=== PATIENT | female | born 1950 | race American Indian/Alaskan Native ===

== ENCOUNTER 2017-05-08 17:01 | Emergency (ER) | payer MEDICAID ==
[2017-05-08 18:13] LABS: Basophils % (Auto) 0.7 % (0.0-1.8); Eosinophils # (Auto) 0.1 K/mm3 (0.0-0.4); Eosinophils % (Auto) 1.8 % (0.0-4.3); Hematocrit 41.9 % (30.3-42.9); Hemoglobin 13.4 gm/dl (10.1-14.3); Lymphocytes # (Auto) 2.2 K/mm3 (1.2-5.4); Lymphocytes % (Auto) 31.6 % (13.4-35.0); Mean Corpuscular HGB Conc 32 % (30-34); Mean Corpuscular Hemoglobin 29 pg (28-32); Mean Corpuscular Volume 92 fl (79-97); Monocytes # (Auto) 0.5 K/mm3 (0.0-0.8); Monocytes % (Auto) 7.8 % (0.0-7.3); Platelet Count 316 K/mm3 (140-440); Red Blood Count 4.58 M/mm3 (3.65-5.03); Red Cell Distribution Width 15.1 % (13.2-15.2)
[2017-05-08 18:39] LABS: Bacteria,Urine 1+ /HPF (Negative); Bilirubin,Urine NEG (Negative); Blood,Urine NEG (Negative); Color,Urine Yellow (Yellow); Hyaline Casts,Urine 1 /LPF; Mucus,Urine FEW /HPF; Nitrite,Urine NEG (Negative); Protein,Urine <15 mg/dL mg/dL (Negative); Urobilinogen,Urine < 2.0 mg/dL (<2.0)
[2017-05-08 18:56] LABS: Calcium 9.1 mg/dL (8.4-10.2)
[2017-05-08 18:57] LABS: Amphetamine Screen,Urine PRESUMPTIVE NEGATIVE; Benzodiazepines Screen,Urine PRESUMPTIVE NEGATIVE; Cannabinoid Screen,Urine PRESUMPTIVE NEGATIVE; Cocaine Screen,Urine PRESUMPTIVE NEGATIVE; Methadone Screen,Urine PRESUMPTIVE NEGATIVE; Opiate Screen,Urine PRESUMPTIVE NEGATIVE
--- NOTE | 2017-05-09 01:17 | Emergency Department Report ---
ED Psych HPI - General Chief Complaint: Dental/Oral Stated Complaint: DEPRESSION Time Seen by Provider: 05/08/17 19:28 Source: patient Mode of arrival: Ambulatory - History of Present Illness Initial Comments: Patient is a 66-year-old [place] female with past medical history schizophrenia who is here for disorganized thoughts. Patient states that she wants to have her teeth removed and replaced. The next sentence the patient is began speaking about how she wants her children around her. Her children or adults. Patient went down several other tangents as well. Patient is denying homicidal suicidal ideations at this time. The patient is unable to tell me where she lives. Patient is denying fevers chills nausea vomiting cough headache at this time. -: unknown - Related Data Allergies Allergy/AdvReac Type Severity Reaction Status Date / Time No Known Allergies Allergy Unverified 05/08/17 17:33 ED Review of Systems ROS: Stated complaint: DEPRESSION Other details as noted in HPI Comment: Unobtainable due to pts medical conditions ED Past Medical Hx - Past Medical History Previous Medical History?: Yes Hx Psychiatric Treatment: Yes (unknown) - Surgical History Hx Appendectomy: (ROSSI) - Social History Smoking Status: Current Every Day Smoker Substance Use Type: Alcohol ED Physical Exam - General Limitations: No Limitations General appearance: alert, in no apparent distress - Head Head exam: Present: atraumatic, normocephalic - Eye Eye exam: Present: normal appearance - ENT ENT exam: Present: mucous membranes moist - Neck Neck exam: Present: normal inspection - Respiratory Respiratory exam: Present: normal lung sounds bilaterally. Absent: respiratory distress, wheezes, rales, rhonchi - Cardiovascular Cardiovascular Exam: Present: regular rate, normal rhythm. Absent: systolic murmur, diastolic murmur, rubs, gallop - GI/Abdominal GI/Abdominal exam: Present: soft, normal bowel sounds - Extremities Exam Extremities exam: Present: normal inspection - Back Exam Back exam: Present: normal inspection - Neurological Exam Neurological exam: Present: alert, altered. Absent: oriented X3 - Psychiatric Psychiatric exam: Present: normal affect, normal mood. Absent: suicidal ideation - Skin Skin exam: Present: warm, dry, intact, normal color. Absent: rash ED Course Vital Signs 05/08/17 05/08/17 05/09/17 17:25 18:15 01:23 Temperature 98.6 F 99.3 F 98.5 F Pulse Rate 95 H 92 H 90 Respiratory 16 20 16 Rate Blood Pressure 134/76 Blood Pressure 143/86 148/88 [Left] Blood Pressure [Right] O2 Sat by Pulse 98 97 98 Oximetry 05/09/17 05/09/17 08:08 08:20 Temperature 98.6 F Pulse Rate 90 Respiratory 20 20 Rate Blood Pressure Blood Pressure [Left] Blood Pressure 161/76 [Right] O2 Sat by Pulse 98 98 Oximetry - Reevaluation(s) Reevaluation #1: 05/09/17 01:17 Patient still pending mobile psych assessment ED Medical Decision Making - Lab Data Result diagrams: 05/08/17 17:51 05/08/17 17:51 - Medical Decision Making Patient is a 66-year-old [place] female who is presenting with disorganized thoughts. Patient is not homicidal suicidal and does not meet criteria for 1013 at this time. Patient is given several numbers of people who may be able to help care for her. Patient's will await social work consult. Critical care attestation.: If time is entered above; I have spent that time in minutes in the direct care of this critically ill patient, excluding procedure time. ED Disposition Clinical Impression: Schizophrenia Disposition: [id number]/TX-65 PSY HOSP/PSY UNIT Is pt being admited?: No Does the pt Need Aspirin: No Condition: Stable Referrals: GUADALUPE CHENG MD [Primary Care Provider] - 3-5 Days
[2017-05-09 08:37] VITALS: BP 161/76
--- NOTE | 2017-05-09 10:00 | Emergency Department Report ---
Blank Doc - Documentation Documentation: Ms. Apple is a 66 years old female was asked by the nurse to assess for possible discharge. Patient has history of dementia and she lived in a fpc. retirement personnel called in asking about how they said that she left the fpc without telling them and/or been looking for. Patient does not have any evidence of acute psychosis or suicidal or homicidal ideation. They' re willing to accept her back to her current resident and they will arrange for transportation.. Patient is safe to go home.
== END 2017-05-09 11:14 | disposition home or self-care (01) ==
LOC: EEVIPCON 17:01 → ED 17:01
DX: F20.9 Schizophrenia, unspecified (principal); F17.200 Nicotine dependence, unspecified, uncomplicated; F03.90 Unspecified dementia, unspecified severity, without behavioral disturbance, psychotic disturbance, mood disturbance, and anxiety; Z90.49 Acquired absence of other specified parts of digestive tract; Z79.899 Other long term (current) drug therapy
CPT/HCPCS: 36415; 80048; 80307; 81001; 85025; 99284; G0480; 80320

== ENCOUNTER 2017-08-08 16:59 | Inpatient (IN) | payer MEDICARE ==
--- NOTE | 2017-08-08 17:47 | Emergency Department Report ---
ED Altered Mental Status HPI - General Chief Complaint: Altered Mental Status Stated Complaint: SEIZURES Time Seen by Provider: 08/08/17 17:30 Source: EMS Mode of arrival: Stretcher Limitations: Altered Mental Status - History of Present Illness Initial Comments: Patient is a 66-year-old female that presents to emergency room with complaints of seizure and unresponsiveness. Per EMS patient was found down at her fdc in a puddle of urine. Patient has a known seizure history and has not been compliant with medications recently. Patient is postictal at this time however is improving. Patient has not had any further seizure activity with EMS or here. Patient's speech is slowed and slurred. Patient is A& O 4. Patient denies chest pain shortness of breath. Patient denies headache. Patient denies dizziness. Patient denies neck pain. Patient denies abdominal pain. States she has not been taking her medications due to not having them. MD Complaint: altered mental status, confusion -: Sudden Severity: Unable to Determine Context: change in medication, history of similar presen, seizure disorder, other Associated Symptoms: denies other symptoms, seizure, incontinence. denies: chest pain, cough, diaphoresis, fever/chills, headaches, loss of appetite, malaise, nausea/vomiting, rash, shortness of breath, syncope, weakness, foul smelling urine, difficulty walking, diarrhea - Related Data Allergies Allergy/AdvReac Type Severity Reaction Status Date / Time No Known Allergies Allergy Unverified 05/08/17 17:33 ED Review of Systems ROS: Stated complaint: SEIZURES Other details as noted in HPI Comment: All other systems reviewed and negative Constitutional: denies: chills, fever Eyes: denies: eye pain, eye discharge, vision change ENT: denies: ear pain, throat pain Respiratory: denies: cough, shortness of breath, wheezing Cardiovascular: denies: chest pain, palpitations Endocrine: no symptoms reported Gastrointestinal: denies: abdominal pain, nausea, diarrhea Genitourinary: denies: urgency, dysuria, discharge Musculoskeletal: denies: back pain, joint swelling, arthralgia Skin: denies: rash, lesions Neurological: weakness. denies: headache, paresthesias Psychiatric: denies: anxiety, depression Hematological/Lymphatic: denies: easy bleeding, easy bruising ED Past Medical Hx - Past Medical History Previous Medical History?: Yes Hx Psychiatric Treatment: Yes (, schizophrenia) - Surgical History Past Surgical History?: No Hx Appendectomy: (ROSSI) - Family History Family history: hypertension - Social History Smoking Status: Unknown if ever smoked Substance Use Type: None ED Physical Exam - General Limitations: No Limitations, Altered Mental Status General appearance: alert, in no apparent distress - Head Head exam: Present: atraumatic, normocephalic - Eye Eye exam: Present: normal appearance - ENT ENT exam: Present: mucous membranes moist - Neck Neck exam: Present: normal inspection - Respiratory Respiratory exam: Present: normal lung sounds bilaterally. Absent: respiratory distress - Cardiovascular Cardiovascular Exam: Present: regular rate, normal rhythm. Absent: systolic murmur, diastolic murmur, rubs, gallop - GI/Abdominal GI/Abdominal exam: Present: soft, normal bowel sounds - Extremities Exam Extremities exam: Present: normal inspection - Back Exam Back exam: Present: normal inspection - Neurological Exam Neurological exam: Present: alert, oriented X3, CN II-XII intact - Expanded Neurological Exam Expanded Patient oriented to: Present: person, place, time Best Eye Response ([place]): (3) open to voice Best Motor Response ([place]): (6) obeys commands Best Verbal Response ([place]): (5) oriented [place] Total: 14 - Skin Skin exam: Present: warm, dry, intact, normal color. Absent: rash ED Course Vital Signs 08/08/17 08/08/17 08/08/17 17:14 17:23 17:30 Temperature 97.8 F Pulse Rate 76 75 Blood Pressure 201/101 Blood Pressure 204/97 [Left] O2 Sat by Pulse 96 Oximetry 08/08/17 18:57 Temperature Pulse Rate Blood Pressure Blood Pressure 189/104 [Left] O2 Sat by Pulse Oximetry - Reevaluation(s) Reevaluation #1: Discussed all results with patient. Discussed plan of care and admission with patient. Patient agreed to be admitted. Hospitalist consulted for admission. 08/08/17 20:11 - Lab Data Result diagrams: 08/08/17 17:52 08/08/17 17:52 Lab Results 08/08/17 08/08/17 08/08/17 Range/Units 17:52 17:52 17:52 WBC 4.6 (4.5-11.0) K/mm3 RBC 4.26 (3.65-5.03) M/mm3 Hgb 12.6 (10.1-14.3) gm/dl Hct 39.4 (30.3-42.9) % MCV 93 (79-97) fl MCH 30 (28-32) pg MCHC 32 (30-34) % RDW 15.8 H (13.2-15.2) % Plt Count 220 (140-440) K/mm3 Lymph % (Auto) 31.1 (13.4-35.0) % [place] % (Auto) 9.1 H (0.0-7.3) % Eos % (Auto) 1.6 (0.0-4.3) % Baso % (Auto) 0.8 (0.0-1.8) % Lymph # 1.4 (1.2-5.4) K/mm3 [place] # 0.4 (0.0-0.8) K/mm3 Eos # 0.1 (0.0-0.4) K/mm3 Baso # 0.0 (0.0-0.1) K/mm3 Seg Neutrophils % 57.4 (40.0-70.0) % Seg Neutrophils # 2.6 (1.8-7.7) K/mm3 Sodium 145 (137-145) mmol/L Potassium 3.9 (3.6-5.0) mmol/L Chloride 104.7 (98-107) mmol/L Carbon Dioxide 29 (22-30) mmol/L Anion Gap 15 mmol/L BUN 15 (7-17) mg/dL Creatinine 1.0 (0.7-1.2) mg/dL Estimated GFR > 60 ml/min BUN/Creatinine Ratio 15 % Glucose 95 (65-100) mg/dL Lactic Acid 1.30 (0.7-2.0) mmol/L Calcium 8.2 L (8.4-10.2) mg/dL Total Bilirubin < 0.20 (0.1-1.2) mg/dL AST 45 H (5-40) units/L ALT 19 (7-56) units/L Alkaline Phosphatase 81 (35-129) units/L Total Creatine Kinase 995 H (30-135) units/L Troponin T 0.159 H* (0.00-0.029) ng/mL Total Protein 6.9 (6.3-8.2) g/dL Albumin 3.0 L (3.9-5) g/dL Albumin/Globulin Ratio 0.8 % Triglycerides 90 (2-149) mg/dL Cholesterol 120 (50-199) mg/dL LDL Cholesterol Direct 80 (50-130) mg/dL HDL Cholesterol 34 L (40-59) mg/dL Cholesterol/HDL Ratio 3.52 % Urine Color (Yellow) Urine Turbidity (Clear) Urine pH (5.0-7.0) Ur Specific [place] (1.003-1.030) Urine Protein (Negative) mg/dL Urine Glucose (UA) (Negative) mg/dL Urine Ketones (Negative) mg/dL Urine Blood (Negative) Urine Nitrite (Negative) Urine Bilirubin (Negative) Urine Urobilinogen (<2.0) mg/dL Ur Leukocyte Esterase (Negative) Urine WBC (Auto) (0.0-6.0) /HPF Urine RBC (Auto) (0.0-6.0) /HPF U Epithel Cells (Auto) (0-13.0) /HPF Urine Bacteria (Auto) (Negative) /HPF Salicylates (2.8-20.0) mg/dL Urine Opiates Screen Urine Methadone Screen Acetaminophen (10.0-30.0) ug/mL Ur Barbiturates Screen Ur Phencyclidine Scrn Ur Amphetamines Screen U Benzodiazepines Scrn Urine Cocaine Screen U Marijuana (THC) Screen Drugs of Abuse Note 08/08/17 08/08/17 08/08/17 Range/Units 17:52 17:52 18:45 WBC (4.5-11.0) K/mm3 RBC (3.65-5.03) M/mm3 Hgb (10.1-14.3) gm/dl Hct (30.3-42.9) % MCV (79-97) fl MCH (28-32) pg MCHC (30-34) % RDW (13.2-15.2) % Plt Count (140-440) K/mm3 Lymph % (Auto) (13.4-35.0) % [place] % (Auto) (0.0-7.3) % Eos % (Auto) (0.0-4.3) % Baso % (Auto) (0.0-1.8) % Lymph # (1.2-5.4) K/mm3 [place] # (0.0-0.8) K/mm3 Eos # (0.0-0.4) K/mm3 Baso # (0.0-0.1) K/mm3 Seg Neutrophils % (40.0-70.0) % Seg Neutrophils # (1.8-7.7) K/mm3 Sodium (137-145) mmol/L Potassium (3.6-5.0) mmol/L Chloride (98-107) mmol/L Carbon Dioxide (22-30) mmol/L Anion Gap mmol/L BUN (7-17) mg/dL Creatinine (0.7-1.2) mg/dL Estimated GFR ml/min BUN/Creatinine Ratio % Glucose (65-100) mg/dL Lactic Acid (0.7-2.0) mmol/L Calcium (8.4-10.2) mg/dL Total Bilirubin (0.1-1.2) mg/dL AST (5-40) units/L ALT (7-56) units/L Alkaline Phosphatase (35-129) units/L Total Creatine Kinase (30-135) units/L Troponin T (0.00-0.029) ng/mL Total Protein (6.3-8.2) g/dL Albumin (3.9-5) g/dL Albumin/Globulin Ratio % Triglycerides (2-149) mg/dL Cholesterol (50-199) mg/dL LDL Cholesterol Direct (50-130) mg/dL HDL Cholesterol (40-59) mg/dL Cholesterol/HDL Ratio % Urine Color Yellow (Yellow) Urine Turbidity Clear (Clear) Urine pH 6.0 (5.0-7.0) Ur Specific [place] 1.010 (1.003-1.030) Urine Protein <15 mg/dl (Negative) mg/dL Urine Glucose (UA) Neg (Negative) mg/dL Urine Ketones Neg (Negative) mg/dL Urine Blood Sm (Negative) Urine Nitrite Neg (Negative) Urine Bilirubin Neg (Negative) Urine Urobilinogen < 2.0 (<2.0) mg/dL Ur Leukocyte Esterase Tr (Negative) Urine WBC (Auto) 2.0 (0.0-6.0) /HPF Urine RBC (Auto) 2.0 (0.0-6.0) /HPF U Epithel Cells (Auto) 2.0 (0-13.0) /HPF Urine Bacteria (Auto) 1+ (Negative) /HPF Salicylates < 0.3 L (2.8-20.0) mg/dL Urine Opiates Screen Urine Methadone Screen Acetaminophen < 5.0 L (10.0-30.0) ug/mL Ur Barbiturates Screen Ur Phencyclidine Scrn Ur Amphetamines Screen U Benzodiazepines Scrn Urine Cocaine Screen U Marijuana (THC) Screen Drugs of Abuse Note 08/08/17 Range/Units 18:45 WBC (4.5-11.0) K/mm3 RBC (3.65-5.03) M/mm3 Hgb (10.1-14.3) gm/dl Hct (30.3-42.9) % MCV (79-97) fl MCH (28-32) pg MCHC (30-34) % RDW (13.2-15.2) % Plt Count (140-440) K/mm3 Lymph % (Auto) (13.4-35.0) % [place] % (Auto) (0.0-7.3) % Eos % (Auto) (0.0-4.3) % Baso % (Auto) (0.0-1.8) % Lymph # (1.2-5.4) K/mm3 [place] # (0.0-0.8) K/mm3 Eos # (0.0-0.4) K/mm3 Baso # (0.0-0.1) K/mm3 Seg Neutrophils % (40.0-70.0) % Seg Neutrophils # (1.8-7.7) K/mm3 Sodium (137-145) mmol/L Potassium (3.6-5.0) mmol/L Chloride (98-107) mmol/L Carbon Dioxide (22-30) mmol/L Anion Gap mmol/L BUN (7-17) mg/dL Creatinine (0.7-1.2) mg/dL Estimated GFR ml/min BUN/Creatinine Ratio % Glucose (65-100) mg/dL Lactic Acid (0.7-2.0) mmol/L Calcium (8.4-10.2) mg/dL Total Bilirubin (0.1-1.2) mg/dL AST (5-40) units/L ALT (7-56) units/L Alkaline Phosphatase (35-129) units/L Total Creatine Kinase (30-135) units/L Troponin T (0.00-0.029) ng/mL Total Protein (6.3-8.2) g/dL Albumin (3.9-5) g/dL Albumin/Globulin Ratio % Triglycerides (2-149) mg/dL Cholesterol (50-199) mg/dL LDL Cholesterol Direct (50-130) mg/dL HDL Cholesterol (40-59) mg/dL Cholesterol/HDL Ratio % Urine Color (Yellow) Urine Turbidity (Clear) Urine pH (5.0-7.0) Ur Specific [place] (1.003-1.030) Urine Protein (Negative) mg/dL Urine Glucose (UA) (Negative) mg/dL Urine Ketones (Negative) mg/dL Urine Blood (Negative) Urine Nitrite (Negative) Urine Bilirubin (Negative) Urine Urobilinogen (<2.0) mg/dL Ur Leukocyte Esterase (Negative) Urine WBC (Auto) (0.0-6.0) /HPF Urine RBC (Auto) (0.0-6.0) /HPF U Epithel Cells (Auto) (0-13.0) /HPF Urine Bacteria (Auto) (Negative) /HPF Salicylates (2.8-20.0) mg/dL Urine Opiates Screen Presumptive negative Urine Methadone Screen Presumptive negative Acetaminophen (10.0-30.0) ug/mL Ur Barbiturates Screen Presumptive negative Ur Phencyclidine Scrn Presumptive negative Ur Amphetamines Screen Presumptive negative U Benzodiazepines Scrn Presumptive negative Urine Cocaine Screen Presumptive negative U Marijuana (THC) Screen Presumptive negative Drugs of Abuse Note Disclamer - EKG Data -: EKG Interpreted by Nv EKG shows normal: sinus rhythm, axis, intervals, QRS complexes, ST-T waves Rate: normal Interpretation: LV[facility] - Radiology Data Radiology results: report reviewed Normal limits CT scan of head - Medical Decision Making She is a 66-year-old female who presents to emergency room with seizure like activity found unresponsive at her [facility] and was brought to the ER via EMS. Patient will be admitted for further evaluation and treatment. During initial workup patient found to have an elevated troponin. will admit for further observation. - Differential Diagnosis seizure. Noncompliance. Unresponsiveness. Hypertension Critical Care Time: Yes Critical care attestation.: If time is entered above; I have spent that time in minutes in the direct care of this critically ill patient, excluding procedure time. Critical Care Time: 35 minutes spent with patient for critical care time ED Disposition Clinical Impression: Seizure, Elevated troponin, Altered mental status, Medical non-compliance, Elevated CK, Rhabdomyolysis Disposition: OP ADMIT IP TO THIS HOSP Is pt being admited?: Yes Does the pt Need Aspirin: No Condition: Critical Time of Disposition: 20:17
[2017-08-08] MEDS ORDERED: APRESOLINE IV ONE (17:49)
[2017-08-08 18:07] LABS: Basophils % (Auto) 0.8 % (0.0-1.8); Eosinophils # (Auto) 0.1 K/mm3 (0.0-0.4); Eosinophils % (Auto) 1.6 % (0.0-4.3); Hematocrit 39.4 % (30.3-42.9); Hemoglobin 12.6 gm/dl (10.1-14.3); Lymphocytes # (Auto) 1.4 K/mm3 (1.2-5.4); Lymphocytes % (Auto) 31.1 % (13.4-35.0); Mean Corpuscular HGB Conc 32 % (30-34); Mean Corpuscular Hemoglobin 30 pg (28-32); Mean Corpuscular Volume 93 fl (79-97); Monocytes # (Auto) 0.4 K/mm3 (0.0-0.8); Monocytes % (Auto) 9.1 % (0.0-7.3); Platelet Count 220 K/mm3 (140-440); Red Blood Count 4.26 M/mm3 (3.65-5.03); Red Cell Distribution Width 15.8 % (13.2-15.2)
[2017-08-08 18:25] LABS: Alanine Aminotransferase 19 units/L (7-56); BUN/Creatinine Ratio 15; Blood Urea Nitrogen 15 mg/dL (7-17); Calcium 8.2 mg/dL (8.4-10.2); Hemolysis Index 3
--- NOTE | 2017-08-08 18:48 | Cat Scan Report ---
FINAL REPORT PROCEDURE: CT HEAD/BRAIN WO CON TECHNIQUE: Computerized tomography of the head was performed without contrast material. HISTORY: Altered Mental Status COMPARISON: No prior studies are available for comparison. FINDINGS: Brain: There is no evidence of intracranial hemorrhage. No parenchymal hemorrhage is seen. No mass lesions or mass effect is identified. No abnormal extra-axial fluid collections or masses are seen. There is some decreased density seen in the periventricular white matter without mass effect. This is fairly symmetric and does not exhibit any mass effect consistent with gliosis probably on the basis of microvascular disease or white matter changes of aging. Ventricles: The ventricles, sulcal pattern and fissures are prominent consistent with atrophy. Bones: No evidence of acute fracture. Paranasal sinuses: Visualized portions are clear. Mastoid air cells: Mastoid air cells bilaterally are partially opacified and there appear to be air-fluid levels bilaterally suggesting acute mastoiditis.. IMPRESSION: There is evidence of mild atrophy and gliosis. No acute intracranial abnormalities are seen. Opacification seen in several of the mastoid air cells bilaterally with air-fluid level suggesting acute mastoiditis.
[2017-08-08 18:53] LABS: Chol/HDL Ratio 3.52 %; HDL Cholesterol 34 mg/dL (40-59); LDL Cholesterol,Direct 80 mg/dL (50-130)
[2017-08-08 18:58] LABS: Bacteria,Urine 1+ /HPF (Negative); Bilirubin,Urine NEG (Negative); Blood,Urine SM (Negative); Color,Urine Yellow (Yellow); Protein,Urine <15 mg/dL mg/dL (Negative); Urobilinogen,Urine < 2.0 mg/dL (<2.0)
[2017-08-08 19:08] LABS: Amphetamine Screen,Urine PRESUMPTIVE NEGATIVE; Benzodiazepines Screen,Urine PRESUMPTIVE NEGATIVE; Cannabinoid Screen,Urine PRESUMPTIVE NEGATIVE; Cocaine Screen,Urine PRESUMPTIVE NEGATIVE; Methadone Screen,Urine PRESUMPTIVE NEGATIVE; Opiate Screen,Urine PRESUMPTIVE NEGATIVE
[2017-08-08] MEDS ORDERED: NACL 0.9% 1000 ML 1,000 ML IV ONE (20:17)
[2017-08-08] MEDS ORDERED: ZOFRAN IV PRN (22:18)
[2017-08-08] MEDS ORDERED: SODIUM CHLORIDE FLUSH SYRINGE 10 ML IV PRN (22:18)
[2017-08-08] MEDS ORDERED: TYLENOL PO PRN (22:18)
--- NOTE | 2017-08-08 22:23 | History and Physical Report ---
History of Present Illness Date of examination: 08/08/17 History of present illness: 66-year-old woman with a history of schizophrenia who is a poor historian, was brought for evaluation of seizure. She stated that this is the first time she had seizure. She was noted to have urinary incontinence. Review of systems Constitutional: no weight loss, chills Ears, eyes, nose, mouth and throat: no nasal congestion, no nasal discharge, no sinus pressure, no vision change, no red eye. Neck: No neck pain or rigidity. Cardiovascular: no chest pain, palpitations Respiratory: No cough, shortness of breath Gastrointestinal: no abdominal pain, hematochezia Genitourinary : no dysuria, frequency , no hematuria Musculoskeletal: no joint swelling or muscle ache Integumentary: no rash, no pruritis Neurological: no parathesias, no numbness, no focal weakness Endocrine: no cold or heat intolerance, no polyuria or polydipsia Hematologic/Lymphatic: no easy bruising, no easy bleeding, no gland swelling Allergic/Immunologic: no urticaria, no angioedema. PAST MEDICAL HISTORY: Schizophrenia PAST SURGICAL HISTORY: Unknown SOCIAL HISTORY: States that she smokes, no alcohol, no drugs FAMILY HISTORY: Unknown Medications and Allergies Allergies Allergy/AdvReac Type Severity Reaction Status Date / Time No Known Allergies Allergy Unverified 05/08/17 17:33 Exam - Physical Exam Narrative exam: Gen. appearance: Patient lying in bed, no apparent distress HEENT: Normocephalic, atraumatic, pupils equally round and reactive to light, extraocular movement intact, and no sclericterus,. No JVD or thyromegaly or nodule,neck supple, no carotid bruit ,mucous membranes moist, no exudate or erythema Heart: S1, S2, regular rate and rhythm Lungs: Clear to auscultation bilaterally, breathing comfortable Abdomen: Positive bowel sounds, nontender, nondistended, no organomegaly Extremity: No edema, cyanosis, clubbing Skin: No rash, nodules, warm, dry Neuro: Oriented 3, cranial nerves II-12 intact, speech is fluent, motor and sensory intact - Constitutional Vitals: Temp Pulse Resp BP Pulse Ox 97.8 F 85 17 159/94 99 08/08/17 17:14 08/08/17 21:30 08/08/17 21:30 08/08/17 21:30 08/08/17 21:30 Results - Labs CBC & Chem 7: 18 17:52 08/08/17 17:52 Labs: Abnormal lab results 18 18 08/08/17 Range/Units 17:52 17:52 17:52 RDW 15.8 H (13.2-15.2) % [place] % (Auto) 9.1 H (0.0-7.3) % Calcium 8.2 L (8.4-10.2) mg/dL AST 45 H (5-40) units/L Total Creatine Kinase 995 H (30-135) units/L Troponin T 0.159 H* (0.00-0.029) ng/mL Albumin 3.0 L (3.9-5) g/dL HDL Cholesterol 34 L (40-59) mg/dL Salicylates < 0.3 L (2.8-20.0) mg/dL Acetaminophen (10.0-30.0) ug/mL 08/08/17 Range/Units 17:52 RDW (13.2-15.2) % [place] % (Auto) (0.0-7.3) % Calcium (8.4-10.2) mg/dL AST (5-40) units/L Total Creatine Kinase (30-135) units/L Troponin T (0.00-0.029) ng/mL Albumin (3.9-5) g/dL HDL Cholesterol (40-59) mg/dL Salicylates (2.8-20.0) mg/dL Acetaminophen < 5.0 L (10.0-30.0) ug/mL - Imaging and Cardiology EKG: image reviewed CT Scan - head: report reviewed Assessment and Plan Assessment New-onset seizure Rhabdomyolysis Abnormal troponin, patient asymptomatic Schizophrenia Plan Admit to medicine Start IV Ativan as needed for seizure activity, consult neurology Start IV fluid, monitor CK levels, check cardiac enzymes DVT prophylaxis
[2017-08-08] MEDS ORDERED: ATIVAN IV PRN (22:57)
[2017-08-08] MEDS ORDERED: NACL 0.45% 1000 ML 1,000 ML IV SCH (23:00)
[2017-08-09 00:25] LABS: Creatine Kinase MB 15.6 ng/mL (0.0-4.0)
[2017-08-09] MEDS: APRESOLINE IV PRN (01:08)
[2017-08-09 05:20] LABS: Basophils % (Auto) 0.6 % (0.0-1.8); Eosinophils # (Auto) 0.1 K/mm3 (0.0-0.4); Hematocrit 40.6 % (30.3-42.9); Hemoglobin 13.1 gm/dl (10.1-14.3); Lymphocytes # (Auto) 1.6 K/mm3 (1.2-5.4); Lymphocytes % (Auto) 33.6 % (13.4-35.0); Mean Corpuscular HGB Conc 32 % (30-34); Mean Corpuscular Hemoglobin 30 pg (28-32); Mean Corpuscular Volume 93 fl (79-97); Monocytes # (Auto) 0.5 K/mm3 (0.0-0.8); Monocytes % (Auto) 10.2 % (0.0-7.3); Platelet Count 213 K/mm3 (140-440); Red Blood Count 4.39 M/mm3 (3.65-5.03); Red Cell Distribution Width 16.2 % (13.2-15.2)
[2017-08-09 05:31] LABS: Calcium 8.3 mg/dL (8.4-10.2)
[2017-08-09 05:34] LABS: Creatine Kinase MB 15.8 ng/mL (0.0-4.0)
--- NOTE | 2017-08-09 08:50 | History and Physical Report ---
History of Present Illness Date of examination: 08/09/17 Date of admission: 08/08/17 22:18 Chief complaint: FOCUSED NEUROLOGY CONSULTATION NOTE CC: I am asked to see this 66 AA F for AMS, [facility] HPI: The patient apparently has a Dx of Schizophrenia and lives in a custodial in which the patient has been living for the past year as she states. She was apparently "found down in a pool of uring" and then brought to the ED here, confused, with a CPK of 995. A post ictal state was suspected, a head CT ( images reviewed) shows only volume loss, SVID, and an old small lacune in the left periventricular region and naught else. The tox screen is negative for illicity drugs and has no explanation for her mental status on admission. There is no explanation for her mental status in her chems. This morning she denies that she has a seizure disorder and denies taking seizure meds. She cannot state the meds she takes. She says she fell at the Jail and remembers falling. ROS: She denied any headache, dizziness, double vision, focal visual sx, any other focal neuro sx or sgns, and an 11 point ROS is negative. NEURO EXAM: MS: she is awakened from sleep, is oriented to hospital, year, and president "Tyler ..." but cannot recall his last name. Her speech is sparse and somewhat slurred (she has but one badly discolored tooth in the left lower jaw) but fluent and without errors. She follows commands well. CN II - 12 nl. Pupils both 4 mm diam and react to bright light, no nystagmus, EOM full. No facial deficit MOT: nl strength all four extrem prox and distal, 5/5 SENS: denies loss to touch throughout CEREB: fnf nl bilat DRTs: 1+ and symm prox and dist arms and legs save for absent AJs bilat, great toes downgoing to plantar stim bialt GAIT: not tested due to fall risk DX IMP: 1. Episode of altered awareness of as yet undetermined mechanism. An isolated seizure is possible. Blunt head trauma with post concussive state due to a fall (by hx) is possible. There is no clue to mechanism from blood studies or head CT. 2. Schizophrenia, chronic, with no info re her current meds 3. Rhabdomyolysis CPK 995 secondary to being "found down" on floor in custodial. RECC: 1. I will order EEG 2. Please get information from Jail re her meds and baseline mental status. 3. Go from there. Balbir Dsouza MD Medications and Allergies Allergies Allergy/AdvReac Type Severity Reaction Status Date / Time No Known Allergies Allergy Unverified 05/08/17 17:33 Home Medications Medication Instructions Recorded Confirmed Last Taken Type Cogentin 08/09/17 08/08/17 History Haldol 08/09/17 08/08/17 History Active Meds: Active Medications Acetaminophen (Tylenol) 650 mg PO Q4H PRN PRN Reason: Pain MILD(1-3)/Fever >100.5/VIZCAINO Enoxaparin Sodium (Lovenox) 40 mg SUB-Q QDAY KAT Hydralazine HCl (Apresoline) 5 mg IV Q6H PRN PRN Reason: Hypertension Last Admin: 08/09/17 01:08 Dose: 5 mg Sodium Chloride (Nacl 0.45% 1000 Ml) 1,000 mls @ 100 mls/hr IV DIRECT KAT Lorazepam (Ativan) 1 mg IV Q4H PRN PRN Reason: Seizures Ondansetron HCl (Zofran) 4 mg IV Q8H PRN PRN Reason: Nausea And Vomiting Sodium Chloride (Sodium Chloride Flush Syringe 10 Ml) 10 ml IV BID KAT Sodium Chloride (Sodium Chloride Flush Syringe 10 Ml) 10 ml IV PRN PRN PRN Reason: LINE FLUSH Physical Examination - Vital Signs Vital Signs: Vital Signs Temp Pulse BP Pulse Ox 97.8 F 76 201/101 96 08/08/17 17:14 08/08/17 17:14 08/08/17 17:14 08/08/17 17:14 Results - Laboratory Findings CBC and BMP: 08/09/17 04:46 08/09/17 04:46 Abnormal Lab Findings: Abnormal Labs 08/08/17 08/08/17 08/08/17 17:52 17:52 17:52 RDW 15.8 H [place] % (Auto) 9.1 H Glucose Calcium 8.2 L AST 45 H Total Creatine Kinase 995 H CK-MB (CK-2) Troponin T 0.159 H* Albumin 3.0 L HDL Cholesterol 34 L Salicylates < 0.3 L Acetaminophen 08/08/17 08/08/17 08/09/17 17:52 23:41 04:46 RDW 16.2 H Nolan % (Auto) 10.2 H Glucose Calcium AST Total Creatine Kinase 929 H CK-MB (CK-2) 15.6 H Troponin T 0.152 H* Albumin HDL Cholesterol Salicylates Acetaminophen < 5.0 L 08/09/17 08/09/17 04:46 04:46 RDW [place] % (Auto) Glucose 57 L Calcium 8.3 L AST Total Creatine Kinase 916 H CK-MB (CK-2) 15.8 H Troponin T 0.148 H* Albumin HDL Cholesterol Salicylates Acetaminophen
--- NOTE | 2017-08-09 09:07 | Progress Note ---
Assessment and Plan Assessment and plan: 66-year-old woman with a history of schizophrenia who presented to ED for evaluation of seizure. 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 [facility] Physical - Constitutional Vitals: Temp Pulse Resp BP Pulse Ox 98.5 F 78 20 139/74 97 08/09/17 04:34 08/08/17 23:30 08/09/17 04:34 08/09/17 04:34 08/08/17 23:30 General appearance: Present: no acute distress, well-nourished - EENT Eyes: Present: PERRL, EOM intact ENT: hearing intact, clear oral mucosa, poor dentition - Neck Neck: Present: supple, normal ROM - Respiratory Respiratory effort: normal Respiratory: bilateral: CTA - Cardiovascular Rhythm: regular Heart Sounds: Present: S1 & S2 - Extremities Extremities: no ischemia, No edema - Abdominal General gastrointestinal: soft, non-tender, non-distended - Integumentary Integumentary: Present: clear, warm, dry - Psychiatric Psychiatric: appropriate mood/affect, no intact judgment & insight, cooperative - Neurologic Neurologic: CNII-XII intact, moves all extremities Results - Labs CBC & Chem 7: 08/09/17 04:46 08/09/17 04:46 Labs: Laboratory Last Values WBC 4.6 K/mm3 (4.5-11.0) 08/09/17 04:46 RBC 4.39 M/mm3 (3.65-5.03) 08/09/17 04:46 Hgb 13.1 gm/dl (10.1-14.3) 08/09/17 04:46 Hct 40.6 % (30.3-42.9) 08/09/17 04:46 MCV 93 fl (79-97) 08/09/17 04:46 MCH 30 pg (28-32) 08/09/17 04:46 MCHC 32 % (30-34) 08/09/17 04:46 RDW 16.2 % (13.2-15.2) H 08/09/17 04:46 Plt Count 213 K/mm3 (140-440) 08/09/17 04:46 Lymph % (Auto) 33.6 % (13.4-35.0) 08/09/17 04:46 [place] % (Auto) 10.2 % (0.0-7.3) H 08/09/17 04:46 Eos % (Auto) 2.0 % (0.0-4.3) 08/09/17 04:46 Baso % (Auto) 0.6 % (0.0-1.8) 08/09/17 04:46 Lymph # 1.6 K/mm3 (1.2-5.4) 08/09/17 04:46 [place] # 0.5 K/mm3 (0.0-0.8) 08/09/17 04:46 Eos # 0.1 K/mm3 (0.0-0.4) 08/09/17 04:46 Baso # 0.0 K/mm3 (0.0-0.1) 08/09/17 04:46 Seg Neutrophils % 53.6 % (40.0-70.0) 08/09/17 04:46 Seg Neutrophils # 2.5 K/mm3 (1.8-7.7) 08/09/17 04:46 Sodium 141 mmol/L (137-145) 08/09/17 04:46 Potassium 4.2 mmol/L (3.6-5.0) 08/09/17 04:46 Chloride 103.5 mmol/L (98-107) 08/09/17 04:46 Carbon Dioxide 26 mmol/L (22-30) 08/09/17 04:46 Anion Gap 16 mmol/L 08/09/17 04:46 BUN 14 mg/dL (7-17) 08/09/17 04:46 Creatinine 1.1 mg/dL (0.7-1.2) 08/09/17 04:46 Estimated GFR 60 ml/min 08/09/17 04:46 BUN/Creatinine Ratio 13 % 08/09/17 04:46 Glucose 57 mg/dL (65-100) L 08/09/17 04:46 Lactic Acid 1.30 mmol/L (0.7-2.0) 08/08/17 17:52 Calcium 8.3 mg/dL (8.4-10.2) L 08/09/17 04:46 Total Bilirubin < 0.20 mg/dL (0.1-1.2) 08/08/17 17:52 AST 45 units/L (5-40) H 08/08/17 17:52 ALT 19 units/L (7-56) 08/08/17 17:52 Alkaline Phosphatase 81 units/L (35-129) 08/08/17 17:52 Total Creatine Kinase 916 units/L (30-135) H 08/09/17 04:46 CK-MB (CK-2) 15.8 ng/mL (0.0-4.0) H 08/09/17 04:46 CK-MB (CK-2) Rel Index 1.7 (0-4) 08/09/17 04:46 Troponin T 0.148 ng/mL (0.00-0.029) H* 08/09/17 04:46 Total Protein 6.9 g/dL (6.3-8.2) 08/08/17 17:52 Albumin 3.0 g/dL (3.9-5) L 08/08/17 17:52 Albumin/Globulin Ratio 0.8 % 08/08/17 17:52 Triglycerides 90 mg/dL (2-149) 08/08/17 17:52 Cholesterol 120 mg/dL (50-199) 08/08/17 17:52 LDL Cholesterol Direct 80 mg/dL (50-130) 08/08/17 17:52 HDL Cholesterol 34 mg/dL (40-59) L 08/08/17 17:52 Cholesterol/HDL Ratio 3.52 % 08/08/17 17:52 Urine Color Yellow (Yellow) 08/08/17 18:45 Urine Turbidity Clear (Clear) 08/08/17 18:45 Urine pH 6.0 (5.0-7.0) 08/08/17 18:45 Ur Specific [place] 1.010 (1.003-1.030) 08/08/17 18:45 Urine Protein <15 mg/dl mg/dL (Negative) 08/08/17 18:45 Urine Glucose (UA) Neg mg/dL (Negative) 08/08/17 18:45 Urine Ketones Neg mg/dL (Negative) 08/08/17 18:45 Urine Blood Sm (Negative) 08/08/17 18:45 Urine Nitrite Neg (Negative) 08/08/17 18:45 Urine Bilirubin Neg (Negative) 08/08/17 18:45 Urine Urobilinogen < 2.0 mg/dL (<2.0) 08/08/17 18:45 Ur Leukocyte Esterase Tr (Negative) 08/08/17 18:45 Urine WBC (Auto) 2.0 /HPF (0.0-6.0) 08/08/17 18:45 Urine RBC (Auto) 2.0 /HPF (0.0-6.0) 08/08/17 18:45 U Epithel Cells (Auto) 2.0 /HPF (0-13.0) 08/08/17 18:45 Urine Bacteria (Auto) 1+ /HPF (Negative) 08/08/17 18:45 Salicylates < 0.3 mg/dL (2.8-20.0) L 08/08/17 17:52 Urine Opiates Screen Presumptive negative 08/08/17 18:45 Urine Methadone Screen Presumptive negative 08/08/17 18:45 Acetaminophen < 5.0 ug/mL (10.0-30.0) L 08/08/17 17:52 Ur Barbiturates Screen Presumptive negative 08/08/17 18:45 Ur Phencyclidine Scrn Presumptive negative 08/08/17 18:45 Ur Amphetamines Screen Presumptive negative 08/08/17 18:45 U Benzodiazepines Scrn Presumptive negative 08/08/17 18:45 Urine Cocaine Screen Presumptive negative 08/08/17 18:45 U Marijuana (THC) Screen Presumptive negative 08/08/17 18:45 Drugs of Abuse Note Disclamer 08/08/17 18:45
[2017-08-09] MEDS: SODIUM CHLORIDE FLUSH SYRINGE 10 ML IV SCH ×2 (09:34→22:33)
[2017-08-09] MEDS: LOVENOX SUB-Q SCH (09:34)
--- NOTE | 2017-08-10 08:20 | Progress Note ---
Subjective Date of service: 08/10/17 Principal diagnosis: Episode of altered awareness Interval history: NEUROLOGY PROGRESS NOTE: EEG: Done 08/09 shows 9 - 10 Hz background activity. During drowsiness, voltages attenuate and frequencies slow. Stage II sleep is not attained. IMP: Normal awake and drowsy EEG. There is specifically no focal, lateralizing , or epileptiform activity. IMP: 1. Fall of undermined case in prison. She may have had a syncopal episode , tripped with subseqent loss of consciousness due to blunt head trauma with loss of urinary continence, had a self medicated overdose of her psych meds, or had an isolated seizure. Her EEG is normal. Neuro exam non focal. RECC: 1. Get more complete hx re her behavior at prison, how her meds are administered, what her meds and dosages are. 2. Get PT to see patient re gait and stability. 3. Go from there. Neuro eval is complete. Call as needed. Balbir Dsouza MD Objective - Vital Sign Vital Signs - 12hr 08/09/17 08/09/17 08/10/17 22:00 23:23 02:53 Temperature 98.6 F Pulse Rate 86 82 Respiratory 20 20 Rate Blood Pressure 157/75 O2 Sat by Pulse 99 96 Oximetry 08/10/17 07:43 Temperature 98.2 F Pulse Rate 68 Respiratory 20 Rate Blood Pressure 158/81 O2 Sat by Pulse 99 Oximetry - Laboratory Findings CBC and BMP: 08/09/17 04:46 08/09/17 04:46 Abnormal Lab Findings: Abnormal Labs 08/08/17 08/08/17 08/08/17 17:52 17:52 17:52 RDW 15.8 H [place] % (Auto) 9.1 H Glucose Calcium 8.2 L AST 45 H Total Creatine Kinase 995 H CK-MB (CK-2) Troponin T 0.159 H* Albumin 3.0 L HDL Cholesterol 34 L Salicylates < 0.3 L Acetaminophen 08/08/17 08/08/17 08/09/17 17:52 23:41 04:46 RDW 16.2 H [place] % (Auto) 10.2 H Glucose Calcium AST Total Creatine Kinase 929 H CK-MB (CK-2) 15.6 H Troponin T 0.152 H* Albumin HDL Cholesterol Salicylates Acetaminophen < 5.0 L 08/09/17 08/09/17 04:46 04:46 RDW [place] % (Auto) Glucose 57 L Calcium 8.3 L AST Total Creatine Kinase 916 H CK-MB (CK-2) 15.8 H Troponin T 0.148 H* Albumin HDL Cholesterol Salicylates Acetaminophen
[2017-08-10] MEDS: LOVENOX SUB-Q SCH (09:26)
[2017-08-10] MEDS: SODIUM CHLORIDE FLUSH SYRINGE 10 ML IV SCH ×2 (09:27→23:07)
--- NOTE | 2017-08-10 17:16 | Discharge Summary ---
Providers - Providers Date of Admission: 08/08/17 22:18 Date of discharge: 08/11/17 Attending physician: FERNANDA SALEH MD 08/08/17 22:18 Consult to Physician [CONS] Routine Comment: Consulting Provider: DAGMAR VALENZUELA Physician Instructions: Reason For Exam: new onset sz 08/09/17 11:09 Physical Therapy Evaluation and Treat [CONS] Routine Comment: Reason For Exam: deconditioning 08/09/17 16:18 Consult to Dietitian/Nutrition [CONS] Routine Physician Instructions: Reason For Exam: Reason for Consult: Malnutrition 08/10/17 10:21 psychiatry consult [Consult to Mental Health] [CONS] Routine Reason For Exam: placement to [facility] consult to:: mental health Notified:: YES Phone number called:: [phone] Was contact made?: Yes If yes, spoke with:: SHERYL Time called:: 10:44 Comment:: NIKKO Primary care physician: GUADALUPE CHENG Hospitalization Condition: Stable Hospital course: 66-year-old woman with a history of schizophrenia who presented to ED for evaluation of seizure. Per EMS she was found in a pool or urine at her skilled nursing -CTA of the brain showed no acute intracranial process. Neurologist was consulted and patient underwent an EEG which was normal along with normal neurological exam. -Patient was treated with antihypertensive for elevated blood pressure after which her blood pressure normalized. She was discharged with amlodipine. -Patient did have elevated CK levels on admission which indicated rhabdomyolysis and was treated with IVF. -Patient's troponin was elevated but began trending down and patient was asymptomatic with no clinical symptoms of acute coronary syndrome. Patient was clinically stable for discharge back to her skilled nursing and advised to follow-up with her primary care provider within 7 days. Discharge diagnoses Syncope Rhabdomyolysis Elevated troponin Schizophrenia Malnutrition DVT prophylaxis Disposition: - TO HOME OR SELFCARE Time spent for discharge: 32 minutes Core Measure Documentation - Palliative Care Palliative Care/ Comfort Measures: Not Applicable - Core Measures Any of the following diagnoses?: none Exam - Constitutional Vitals: Temp Pulse Resp BP Pulse Ox 98.2 F 70 18 158/81 99 08/10/17 07:43 08/10/17 10:00 08/10/17 10:00 08/10/17 07:43 08/10/17 09:41 General appearance: Present: no acute distress, well-nourished - EENT Eyes: Present: PERRL ENT: hearing intact, clear oral mucosa - Neck Neck: Present: supple, normal ROM - Respiratory Respiratory effort: normal Respiratory: bilateral: CTA - Cardiovascular Heart Sounds: Present: S1 & S2. Absent: rub, click - Extremities Extremities: pulses symmetrical, No edema Peripheral Pulses: within normal limits - Abdominal General gastrointestinal: Present: soft, non-tender, non-distended, normal bowel sounds - Integumentary Integumentary: Present: clear, warm, dry - Musculoskeletal Musculoskeletal: gait normal, strength equal bilaterally - Psychiatric Psychiatric: appropriate mood/affect, intact judgment & insight - Neurologic Neurologic: CNII-XII intact, moves all extremities Plan Diet: low fat, low cholesterol, low salt Follow up with: GUADALUPE CHENG MD [Primary Care Provider] - 3-5 Days Prescriptions: amLODIPine [Norvasc] 10 mg PO DAILY #30 tab
[2017-08-10] MEDS: APRESOLINE IV PRN (23:00)
[2017-08-11 08:14] VITALS: BP 137/67
--- NOTE | 2017-08-11 13:29 | Progress Note ---
Assessment and Plan Assessment and plan: 66-year-old woman with a history of schizophrenia who presented to ED for evaluation of seizure. 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 No new issues overnight. Hospitalist Physical - Constitutional Vitals: Temp Pulse Resp BP Pulse Ox 98.3 F 79 18 137/67 98 08/11/17 07:32 08/11/17 07:32 08/11/17 07:32 08/11/17 07:32 08/11/17 09:59 General appearance: Present: no acute distress, well-nourished - EENT Eyes: Present: PERRL, EOM intact ENT: hearing intact, clear oral mucosa - Neck Neck: Present: supple, normal ROM - Respiratory Respiratory effort: normal Respiratory: bilateral: CTA - Cardiovascular Rhythm: regular Heart Sounds: Present: S1 & S2 - Extremities Extremities: no ischemia, No edema - Abdominal General gastrointestinal: soft, non-tender, non-distended - Integumentary Integumentary: Present: clear, warm, dry - Psychiatric Psychiatric: appropriate mood/affect, cooperative - Neurologic Neurologic: CNII-XII intact, moves all extremities Results - Labs CBC & Chem 7: 08/09/17 04:46 08/09/17 04:46 Labs: Laboratory Last Values WBC 4.6 K/mm3 (4.5-11.0) 08/09/17 04:46 RBC 4.39 M/mm3 (3.65-5.03) 08/09/17 04:46 Hgb 13.1 gm/dl (10.1-14.3) 08/09/17 04:46 Hct 40.6 % (30.3-42.9) 08/09/17 04:46 MCV 93 fl (79-97) 08/09/17 04:46 MCH 30 pg (28-32) 08/09/17 04:46 MCHC 32 % (30-34) 08/09/17 04:46 RDW 16.2 % (13.2-15.2) H 08/09/17 04:46 Plt Count 213 K/mm3 (140-440) 08/09/17 04:46 Lymph % (Auto) 33.6 % (13.4-35.0) 08/09/17 04:46 [place] % (Auto) 10.2 % (0.0-7.3) H 08/09/17 04:46 Eos % (Auto) 2.0 % (0.0-4.3) 08/09/17 04:46 Baso % (Auto) 0.6 % (0.0-1.8) 08/09/17 04:46 Lymph # 1.6 K/mm3 (1.2-5.4) 08/09/17 04:46 [place] # 0.5 K/mm3 (0.0-0.8) 08/09/17 04:46 Eos # 0.1 K/mm3 (0.0-0.4) 08/09/17 04:46 Baso # 0.0 K/mm3 (0.0-0.1) 08/09/17 04:46 Seg Neutrophils % 53.6 % (40.0-70.0) 08/09/17 04:46 Seg Neutrophils # 2.5 K/mm3 (1.8-7.7) 08/09/17 04:46 Sodium 141 mmol/L (137-145) 08/09/17 04:46 Potassium 4.2 mmol/L (3.6-5.0) 08/09/17 04:46 Chloride 103.5 mmol/L (98-107) 08/09/17 04:46 Carbon Dioxide 26 mmol/L (22-30) 08/09/17 04:46 Anion Gap 16 mmol/L 08/09/17 04:46 BUN 14 mg/dL (7-17) 08/09/17 04:46 Creatinine 1.1 mg/dL (0.7-1.2) 08/09/17 04:46 Estimated GFR 60 ml/min 08/09/17 04:46 BUN/Creatinine Ratio 13 % 08/09/17 04:46 Glucose 57 mg/dL (65-100) L 08/09/17 04:46 Lactic Acid 1.30 mmol/L (0.7-2.0) 08/08/17 17:52 Calcium 8.3 mg/dL (8.4-10.2) L 08/09/17 04:46 Total Bilirubin < 0.20 mg/dL (0.1-1.2) 08/08/17 17:52 AST 45 units/L (5-40) H 08/08/17 17:52 ALT 19 units/L (7-56) 08/08/17 17:52 Alkaline Phosphatase 81 units/L (35-129) 08/08/17 17:52 Total Creatine Kinase 916 units/L (30-135) H 08/09/17 04:46 CK-MB (CK-2) 15.8 ng/mL (0.0-4.0) H 08/09/17 04:46 CK-MB (CK-2) Rel Index 1.7 (0-4) 08/09/17 04:46 Troponin T 0.148 ng/mL (0.00-0.029) H* 08/09/17 04:46 Total Protein 6.9 g/dL (6.3-8.2) 08/08/17 17:52 Albumin 3.0 g/dL (3.9-5) L 08/08/17 17:52 Albumin/Globulin Ratio 0.8 % 08/08/17 17:52 Triglycerides 90 mg/dL (2-149) 08/08/17 17:52 Cholesterol 120 mg/dL (50-199) 08/08/17 17:52 LDL Cholesterol Direct 80 mg/dL (50-130) 08/08/17 17:52 HDL Cholesterol 34 mg/dL (40-59) L 08/08/17 17:52 Cholesterol/HDL Ratio 3.52 % 08/08/17 17:52 Urine Color Yellow (Yellow) 08/08/17 18:45 Urine Turbidity Clear (Clear) 08/08/17 18:45 Urine pH 6.0 (5.0-7.0) 08/08/17 18:45 Ur Specific [place] 1.010 (1.003-1.030) 08/08/17 18:45 Urine Protein <15 mg/dl mg/dL (Negative) 08/08/17 18:45 Urine Glucose (UA) Neg mg/dL (Negative) 08/08/17 18:45 Urine Ketones Neg mg/dL (Negative) 08/08/17 18:45 Urine Blood Sm (Negative) 08/08/17 18:45 Urine Nitrite Neg (Negative) 08/08/17 18:45 Urine Bilirubin Neg (Negative) 08/08/17 18:45 Urine Urobilinogen < 2.0 mg/dL (<2.0) 08/08/17 18:45 Ur Leukocyte Esterase Tr (Negative) 08/08/17 18:45 Urine WBC (Auto) 2.0 /HPF (0.0-6.0) 08/08/17 18:45 Urine RBC (Auto) 2.0 /HPF (0.0-6.0) 08/08/17 18:45 U Epithel Cells (Auto) 2.0 /HPF (0-13.0) 08/08/17 18:45 Urine Bacteria (Auto) 1+ /HPF (Negative) 08/08/17 18:45 Salicylates < 0.3 mg/dL (2.8-20.0) L 08/08/17 17:52 Urine Opiates Screen Presumptive negative 08/08/17 18:45 Urine Methadone Screen Presumptive negative 08/08/17 18:45 Acetaminophen < 5.0 ug/mL (10.0-30.0) L 08/08/17 17:52 Ur Barbiturates Screen Presumptive negative 08/08/17 18:45 Ur Phencyclidine Scrn Presumptive negative 08/08/17 18:45 Ur Amphetamines Screen Presumptive negative 08/08/17 18:45 U Benzodiazepines Scrn Presumptive negative 08/08/17 18:45 Urine Cocaine Screen Presumptive negative 08/08/17 18:45 U Marijuana (THC) Screen Presumptive negative 08/08/17 18:45 Drugs of Abuse Note Disclamer 08/08/17 18:45
--- NOTE | 2017-08-11 14:12 | Consultation ---
History of Present Illness - Reason for Consult Consult date: 08/11/17 Reason for consult: Initial Psychiatric Evaluation - Chief Complaint Chief complaint: FOCUSED NEUROLOGY CONSULTATION NOTE CC: I am asked to see this 66 AA F for AMS, admitted yesterday from [facility] HPI: The patient apparently has a Dx of Schizophrenia and lives in a senior care in which the patient has been living for the past year as she states. She was apparently "found down in a pool of uring" and then brought to the ED here, confused, with a CPK of 995. A post ictal state was suspected, a head CT ( images reviewed) shows only volume loss, SVID, and an old small lacune in the left periventricular region and naught else. The tox screen is negative for illicity drugs and has no explanation for her mental status on admission. There is no explanation for her mental status in her chems. This morning she denies that she has a seizure disorder and denies taking seizure meds. She cannot state the meds she takes. She says she fell at the [facility] and remembers falling. ROS: She denied any headache, dizziness, double vision, focal visual sx, any other focal neuro sx or sgns, and an 11 point ROS is negative. NEURO EXAM: MS: she is awakened from sleep, is oriented to hospital, year, and president "Tyler ..." but cannot recall his last name. Her speech is sparse and somewhat slurred (she has but one badly discolored tooth in the left lower jaw) but fluent and without errors. She follows commands well. CN II - 12 nl. Pupils both 4 mm diam and react to bright light, no nystagmus, EOM full. No facial deficit MOT: nl strength all four extrem prox and distal, 5/5 SENS: denies loss to touch throughout CEREB: fnf nl bilat DRTs: 1+ and symm prox and dist arms and legs save for absent AJs bilat, great toes downgoing to plantar stim bialt GAIT: not tested due to fall risk DX IMP: 1. Episode of altered awareness of as yet undetermined mechanism. An isolated seizure is possible. Blunt head trauma with post concussive state due to a fall (by hx) is possible. There is no clue to mechanism from blood studies or head CT. 2. Schizophrenia, chronic, with no info re her current meds 3. Rhabdomyolysis CPK 995 secondary to being "found down" on floor in senior care. RECC: 1. I will order EEG 2. Please get information from [facility] re her meds and baseline mental status. 3. Go from there. Balbir Dsouza MD - History of Present Psychiatric Illness Janna is a 66 year old Allergies: NKDA Past Psychiatric History: Previous Diagnosis - Schizoaffective Disorder, Bipolar Type (unknown); +previous inpatient hospitalizations; (unknown) previous suicide attempts; (unknown) + outpatient psychiatrist. Past Psychiatric Medication Trials: Unable to obtain. History of Trauma/Abuse: Unable to obtain. Social History: Unable to obtain. Family History: Unable to obtain. Drug/ Alcohol Abuse: Unable to obtain. Medications and Allergies Allergies Allergy/AdvReac Type Severity Reaction Status Date / Time No Known Allergies Allergy Unverified 05/08/17 17:33 Home Medications Medication Instructions Recorded Confirmed Last Taken Type Depakote 500 mg PO DAILY 08/09/17 08/09/17 07/19/17 History amLODIPine [Norvasc] 10 mg PO DAILY #30 tab 08/10/17 Unknown Rx Active Meds: Active Medications Acetaminophen (Tylenol) 650 mg PO Q4H PRN PRN Reason: Pain MILD(1-3)/Fever >100.5/VIZCAINO Enoxaparin Sodium (Lovenox) 40 mg SUB-Q QDAY [facility] Last Admin: 08/10/17 09:26 Dose: 40 mg Hydralazine HCl (Apresoline) 5 mg IV Q6H PRN PRN Reason: Hypertension Last Admin: 08/10/17 23:00 Dose: 5 mg Sodium Chloride (Nacl 0.45% 1000 Ml) 1,000 mls @ 100 mls/hr IV DIRECT KAT Lorazepam (Ativan) 1 mg IV Q4H PRN PRN Reason: Seizures Ondansetron HCl (Zofran) 4 mg IV Q8H PRN PRN Reason: Nausea And Vomiting Sodium Chloride (Sodium Chloride Flush Syringe 10 Ml) 10 ml IV BID [facility] Last Admin: 08/10/17 23:07 Dose: 10 ml Sodium Chloride (Sodium Chloride Flush Syringe 10 Ml) 10 ml IV PRN PRN PRN Reason: LINE FLUSH Mental Status Exam - Vital signs Last Vital Signs Temp 98.3 F 08/11/17 07:32 Pulse 79 08/11/17 07:32 Resp 18 08/11/17 07:32 BP 137/67 08/11/17 07:32 Pulse Ox 98 08/11/17 09:59 - Exam Narrative exam: Mental Status Exam Appearance: Attitude/Behavior: Sensorium: Orientation: Psychomotor & Musculoskeletal Activity: Behavior: regular eye contact Speech: regular rate with low tone Mood: agitated Affect: congruent to mood Thought Process: tangential Thought Content: denies SI/HI's and AVH's, delusional, paranoid Insight: poor Judgment: poor Results Result Diagrams: 08/09/17 04:46 08/09/17 04:46 All other labs normal. Assessment and Plan Assessment and plan: Impression: DDx: Recommendations/Plan:
== END 2017-08-11 13:10 | disposition home or self-care (01) | DRG 565 ==
LOC: ED 16:59 → 2B-ACE 22:18
PROVIDERS: ADMIT Internal Medicine; ATTEND Internal Medicine
DX: T79.6XXA Traumatic ischemia of muscle, initial encounter (principal); E46 Unspecified protein-calorie malnutrition; Z68.41 Body mass index [BMI] 40.0-44.9, adult; S09.90XA Unspecified injury of head, initial encounter; W18.39XA Other fall on same level, initial encounter; I10 Essential (primary) hypertension; R55 Syncope and collapse; F20.9 Schizophrenia, unspecified; Z91.14 Patient's other noncompliance with medication regimen; Y93.89 Activity, other specified; Y92.098 Other place in other non-institutional residence as the place of occurrence of the external cause; Y99.8 Other external cause status
CPT/HCPCS: 36415; 70450; 80048; 80053; 80061; 80307; 80320; 81001; 82140; 82550; 82553; 84484; 85025; 93005; 93010; 95819; 96374; 99406; G0480; G8978-GP; G8979-GP; J0360; J1650; J7030

== ENCOUNTER 2017-09-18 10:15 | Emergency (ER) | payer MEDICARE ==
[~2017-09-18 10:15] MED LIST: AMIDATE IV ONE; QUELICIN ONE; VERSED IV ONE; ZEMURON IV ONE
--- NOTE | 2017-09-18 10:28 | Emergency Department Report ---
ED Seizure HPI - General Stated Complaint: CVA Time Seen by Provider: 09/18/17 10:26 Source: EMS - History of Present Illness Initial Comments: History of seizures and had a witnessed spell/ seizure this morning 9:30 AM after that she began its r side facial weakness and altered mental status she presents to the ED for evaluation of altered mental status r side weakness and facial droop with status post spell and a Remlap Coma Scale of 12 patient [id number] code stroke sent to CT scanner on arrival. History is unobtainable given the patient's status -: Sudden, hour(s) Description of Episode: loss of consciousness, tonic-clonic movement Seizure History: known seizure disorder Place: home - Related Data Home Medications Medication Instructions Recorded Confirmed Last Taken Depakote 500 mg PO DAILY 08/09/17 08/09/17 07/19/17 Previous Rx's Medication Instructions Recorded Last Taken Type amLODIPine [Norvasc] 10 mg PO DAILY #30 tab 08/10/17 Unknown Rx Allergies Allergy/AdvReac Type Severity Reaction Status Date / Time No Known Allergies Allergy Unverified 05/08/17 17:33 ED Review of Systems ROS: Stated complaint: CVA Other details as noted in HPI Comment: Unobtainable due to pts medical conditions ED Past Medical Hx - Past Medical History Hx Hypertension: Yes Hx Psychiatric Treatment: Yes (, schizophrenia) - Surgical History Hx Appendectomy: (ROSSI) - Social History Smoking Status: Current Every Day Smoker - Medications Home Medications: Home Medications Medication Instructions Recorded Confirmed Last Taken Type Depakote 500 mg PO DAILY 08/09/17 08/09/17 07/19/17 History amLODIPine [Norvasc] 10 mg PO DAILY #30 tab 08/10/17 Unknown Rx ED Physical Exam - General General appearance: lethargic, obtunded - Head Head exam: Present: atraumatic, normocephalic - Eye Pupils: Present: miosis - ENT ENT exam: Present: other (positive gag reflex S Cook coma scale 12) - Neck Neck exam: Present: normal inspection. Absent: tenderness, meningismus - Respiratory Respiratory exam: Present: normal lung sounds bilaterally, prolonged expiratory. Absent: respiratory distress, wheezes, rales, rhonchi, stridor - Cardiovascular Cardiovascular Exam: Present: regular rate, tachycardia - GI/Abdominal GI/Abdominal exam: Present: soft. Absent: distended, tenderness, guarding, rebound, rigid, mass, pulsatile mass - Extremities Exam Extremities exam: Absent: pedal edema, joint swelling, calf tenderness - Neurological Exam Neurological exam: Present: other (right-sided weakness she does follow commands eyes are minimally open with occasional verbal but confused) - Psychiatric Psychiatric exam: Present: anxious - Skin Skin exam: Present: pallor ED Course Vital Signs 09/18/17 09/18/17 09/18/17 10:15 10:23 10:48 Temperature 97.9 F Pulse Rate 108 H 99 H Respiratory 22 20 Rate Blood Pressure 186/112 Blood Pressure 181/111 [Right] O2 Sat by Pulse 98 97 100 Oximetry - Intubation Time Out Performed: Yes Sedative: Versed Paralytic: Succinylcholine Laryngoscope: fiberoptic video scope Size: 4 Assist Device Used: fiberoptic device ET Tube Size: 7 Tube Secured Location: lips Tube Placement Confirmation: visualized tube passing t Patient Tolerated Procedure: no complications, other Intubation Complications: difficult intubation Additional Comments: Initial attempt with a videolaryngoscopy with a 7.5 By me was unsuccessful patient did have some trachaelstenosis was then assisted by Dr. Lopez did visualize the tube" the 7 ET tube Mac 42 attempts with good color change and breath sounds bilaterally no desaturation appreciated ED Medical Decision Making - Lab Data Result diagrams: 09/18/17 10:27 09/18/17 10:27 - EKG Data -: EKG Interpreted by Me EKG shows normal: sinus rhythm - EKG Data Interpretation: other (poor R-wave progression nonspecific ST change) - Radiology Data Radiology results: report reviewed - Medical Decision Making Patient was sent emergently to CAT scan CT to a 3 cm based currently in bleed with 4 mm of mass effect case was discussed with dr. mejia [facility] stroke service given that h patricia hemorrhage with acute cva. he did recommend trying the systolic below 160 between arrangement 1 4160 she was on propofol drip Critical care attestation.: If time is entered above; I have spent that time in minutes in the direct care of this critically ill patient, excluding procedure time. 45 ED Disposition Clinical Impression: ICH (intracerebral hemorrhage) Disposition: DC/TX-70 ANOTHER TYPE HLTHCARE Is pt being admited?: No Condition: Critical Referrals: PRIMARY CARE,MD [Primary Care Provider] - 3-5 Days Time of Disposition: 11:49
[2017-09-18 10:39] LABS: Basophils # (Auto) 0.1 K/mm3 (0.0-0.1); Basophils % (Auto) 0.8 % (0.0-1.8); Eosinophils # (Auto) 0.1 K/mm3 (0.0-0.4); Hematocrit 39.2 % (30.3-42.9); Hemoglobin 13.2 gm/dl (10.1-14.3); Lymphocytes # (Auto) 2.3 K/mm3 (1.2-5.4); Mean Corpuscular HGB Conc 34 % (30-34); Mean Corpuscular Hemoglobin 31 pg (28-32); Mean Corpuscular Volume 91 fl (79-97); Monocytes # (Auto) 0.7 K/mm3 (0.0-0.8); Monocytes % (Auto) 10.1 % (0.0-7.3); Platelet Count 275 K/mm3 (140-440); Red Blood Count 4.29 M/mm3 (3.65-5.03)
--- NOTE | 2017-09-18 10:43 | Cat Scan Report ---
CT HEAD WITHOUT CONTRAST: 09/18/17 10:15:00 CLINICAL: 98N-STROKE ALERT. TECHNIQUE: 2.5-mm noncontrast scans. COMPARISON:08/08/17 FINDINGS: A 3.6 x 3.0 cm hemorrhage originates in the left basal ganglia and extends into the colón radiata. There is mass effect and a 4 mm shift of the midline to the right. A chronic left colón radiata lacunar infarct. Mild cortical atrophy and chronic white matter hypodensities. No extra-axial hemorrhage. No mass. The sinuses are clear. Normal orbits and soft tissues. The calvarium and skull base are intact. IMPRESSION: 1. An acute 3.6 cm left basal ganglia and colón radiata cerebral hemorrhage with mass effect and a 4 mm shift of the midline to the right. 2. A chronic left colón radiata lacunar infarct. 3. Mild cortical atrophy and chronic white matter microangiopathy. Verbal report was given to Dr. Bray in the emergency department on 09/18/17 at 10:30. 98N-STROKE ALERT
[2017-09-18 10:51] LABS: INR 0.91 (0.87-1.13); Partial Thromboplastin Time 30.9 Sec. (24.2-36.6)
[2017-09-18 10:53] LABS: BUN/Creatinine Ratio 15; Blood Urea Nitrogen 15 mg/dL (7-17); Calcium 8.7 mg/dL (8.4-10.2); Hemolysis Index 8
[2017-09-18 11:08] LABS: Chol/HDL Ratio 3.78 %; HDL Cholesterol 41 mg/dL (40-59); LDL Cholesterol,Direct 103 mg/dL (50-130)
[2017-09-18] MEDS ORDERED: QUELICIN IV ONE (11:29)
[2017-09-18] MEDS ORDERED: DIPRIVAN 10 MG/ML IV ONE (11:29)
[2017-09-18] MEDS ORDERED: ZEMURON IV ONE (11:30)
[2017-09-18] MEDS ORDERED: AMIDATE IV ONE (11:30)
--- NOTE | 2017-09-18 11:50 | XRay Report ---
AP CHEST :09/18/17 11:32 CLINICAL: Post intubation. COMPARISON:None. FINDINGS: An endotracheal tube is in satisfactory position. A nasogastric tube tip is below the diaphragm. The heart and pulmonary vessels are normal. The lungs are clear. No pneumothorax. IMPRESSION: Satisfactory position of the endotracheal tube.
[2017-09-18] MEDS ORDERED: VERSED IV NR (12:00)
[2017-09-18] MEDS ORDERED: CARDENE 50 MG in NACL 0.9% 250ML 230 ML IV SCH (12:00)
[2017-09-18] MEDS ORDERED: DIPRIVAN 10 MG/ML 1,000 MG/100 ML BOTTLE IV SCH (12:00)
[2017-09-18] MEDS ORDERED: APRESOLINE IV ONE (12:03)
[2017-09-18 12:29] VITALS: BP 165/100
== END 2017-09-18 12:40 | disposition other institution (70) ==
LOC: ED 10:15
DX: I61.9 Nontraumatic intracerebral hemorrhage, unspecified (principal); I10 Essential (primary) hypertension; F20.9 Schizophrenia, unspecified; F17.200 Nicotine dependence, unspecified, uncomplicated
CPT/HCPCS: 31500; 36415; 51702; 70450; 71045; 80048; 80061; 82962; 84484; 85025; 85610; 85670; 85730; 93005; 93010; 96365; 96368; 96375; 99291; J0330; J2250; J7050; 94002

== ENCOUNTER 2019-06-19 11:07 | Day surgery (SDC) | payer MEDICARE ==
--- NOTE | 2019-06-19 10:33 | Anesthesia Day of Surgery ---
Anesthesia Day of Surgery - Day of Surgery Patient Examined: Yes Patient H&P Reviewed: Yes Patient is NPO: Yes Beta Blockers: No Cardiac Clearance: No Pulmonary Clearance: No
[~2019-06-19 11:07] MED LIST changes: -AMIDATE IV ONE; -QUELICIN ONE; -VERSED IV ONE; -ZEMURON IV ONE; +propofoL 200 MG/20 ML VIAL IV ONE
--- NOTE | 2019-06-19 11:29 | Anesthesia Consultation ---
Anesthesia Consult and Med Hx Date of service: 06/19/19 - Airway Anesthetic Teeth Evaluation: Poor ROM Head & Neck: Adequate Mental/Hyoid Distance: Adequate Mallampati Class: Class II Intubation Access Assessment: Probably Good - Pulmonary Exam CTA: Yes - Cardiac Exam Cardiac Exam: RRR - Pre-Operative Health Status ASA Pre-Surgery Classification: ASA4 Proposed Anesthetic Plan: General, MAC - Pulmonary Hx Smoking: Yes - Cardiovascular System Hx Hypertension: Yes - Central Nervous System Hx Seizures: Yes CVA: Yes (Intracranial hemorrhage, Rt sided weakness) Hx Psychiatric Problems: Yes (Schizophrenia) - Gastrointestinal Hx Ulcer: No (Dusphagia) - Hematic Hx Anemia: Yes - Other Systems Hx Alcohol Use: Yes Hx Substance Use: Yes Hx Cancer: No
[2019-06-19] MEDS ORDERED: SODIUM CHLORIDE 0.9% 1000 ML 1,000 ML IV SCH (11:30)
[2019-06-19] MEDS ORDERED: LIDOCAINE MPF (2%) 20 MG/1 ML VIAL 5 ML ONE (12:00)
[2019-06-19] MEDS ORDERED: ceFAZolin/Water 2 GM/20 ML 2 GM/20 ML SYRINGE IV ONE (12:01)
[2019-06-19] MEDS ORDERED: fentaNYL 100 MCG/2 ML INJ ONE (13:35)
[2019-06-19] MEDS ORDERED: propofoL 200 MG/20 ML VIAL IV ONE (13:36)
[2019-06-19] MEDS ORDERED: NEOMY 3.5 MG/BACIT 400 UNITS/POLY B 5000 UNITS/GM OINT PACKET TP ONE (13:44)
[2019-06-19 14:45] VITALS: BP 164/93
--- NOTE | 2019-06-19 16:45 | Operative Report ---
Operative Report Operative Report: PROCEDURE: Esophagogastroduodenoscopy with Percutaneous Endoscopic Gastrostomy Tube Placement. ATTENDING PHYSICIAN: Aftab Santiago M.D. SPEECH PATHOLOGIST: Aftab Santiago M.D. INDICATION: Patient is a 68 y.o. female with dementia, severe oropharyngeal dysphagia with poor oral intake and and inability to swallow. This procedure is now done to place a percutaneous endoscopic gastrostomy tube for enteral feeding and administration of medications. CONSENT: An informed Informed consent was obtained from patients family recognizing the medical necessity of this procedure to provide nutrition with enteral feeding and administration of medications. The nature of this procedure, its indications, potential benefits as well as possible complications including but not limited to bleeding, perforation, adverse reaction to medications, infection as well as cardiopulmonary complications were considered . An informed consent was obtained after an opportunity was provided for questions and answers. MONITORING: Patient monitored continuously with pulse oximetry, electrocardiographic recordings as well as automatic blood pressure recordings. Patient remained stable throughout the procedure with no untoward events. PREOPERATIVE ASSESSMENT: Patient was assessed immediately prior to this procedure for capacity to tolerate moderate sedation/monitored anesthesia care. [place] anesthes[employer] association classification is 3. Mallampatti class is 2. Hyomental distance is 3. INSTRUMENT: GIF Q1 60 Olympus video endoscope, 20 percutaneous endoscopic gastrostomy tube kit MEDICATIONS: Propofol was given intravenously in divided doses. For details, please refer to anesthesia records. Additionally, patient received 2 gram of Cefazolin given intravenously prior to onset of this procedure.. DESCRIPTION OF PROCEDURE: Patient was placed in a supine position. The abdominal wall was cleaned with betadine and also Hydrogen peroxide. There oral cavity was cleaned with Peridex. after achieving sedation, the endoscope was introduced into the esophagus under direct patient and advanced to the stomach and then to the second portion of the duodenum. It was withdrawn back into the stomach where, under direct light transillumination and one-to-one finger indentation, a 20 Swiss percutaneous endoscopic gastrostomy tube was successfully placed. Patient tolerated procedure well with no untoward events. The endoscope was then carefully removed after the placement. Endoscopic findings as follows. FINDINGS: 20 Swiss percutaneous endoscopic gastrostomy tube was successfully placed. There was mild gastric antral erythema. The rest of the examination was normal. IMPRESSION: Successful placement of a 20 Swiss percutaneous endoscopic gastrostomy tube. The final position was 2 cm. Mucosal changes suggestive of gastritis. PLAN: The tube site is currently at 2 cm. It should be cleaned daily with Betadine and peroxide. Triple Antibiotic should be applied daily to the site with dry gauze dressing a for at least 2-3 weeks. The tube site should be carefully inspected daily for any redness or discharge. The tube should be flushed with 100 mL of water every 6 hours. The tube should also be flushed additionally after administration medications or after completing a feeding session. Tube may be used for enteral feeding after 6 hours. The tube however may be used immediately for administration of medications. If the tube is accidentally dislodged, a forest management professor should be notified immediately. After 6 hours, the tube may be used for enteral feeding. The advice however and recommendation is to begin tube feeding at a slow rate of 30 mL per hour and gradually increase as may be instructed after 8 hours. Residuals from the feeding tube should be checked every 3 hours for at least 24-36 hours. If patient tolerates feeding, the feeding volume should be optimized as may advised by the dietitian. If patient has high residuals, then caution should be used in increasing the feeding rate to avoid aspiration. The head of the bed should be kept at 30 always.
--- NOTE | 2019-06-19 16:46 | Discharge Summary ---
Short Stay Discharge Plan Activity: advance as tolerated Weight Bearing Status: Non-Weight Bearing Diet: other (Resume tube feeding as ordered) Additional Instructions: Post Sedation D/C Instructions When you return home you may resume your regular diet unless otherwise directed. -Go directly home from the hospital and rest quietly. You may resume normal activities tomorrow. -Do NOT drive, return to work, operate any machinery or make any important personal or business decisions today. -Do NOT drink any alcohol or take nerve or sleeping drugs. They add to the effects of the medicine still present in your body. Follow up with Dr. Santiago in 2 weeks. Keep Head of Bed elevated 30 degress. May start feeding at 8 p.m. May use feeding tube for medication at 4 p.m. Follow up with: PRIMARY CAREMD [Primary Care Provider] - 7 Days
== END 2019-06-19 11:08 | disposition home or self-care (01) ==
LOC: GIO 11:07
PROVIDERS: ATTEND Internal Medicine Gastroenterology
DX: R13.12 Dysphagia, oropharyngeal phase (principal); F03.90 Unspecified dementia, unspecified severity, without behavioral disturbance, psychotic disturbance, mood disturbance, and anxiety; R63.0 Anorexia; E44.0 Moderate protein-calorie malnutrition; R63.4 Abnormal weight loss; R63.3 Feeding difficulties; K29.70 Gastritis, unspecified, without bleeding; G40.909 Epilepsy, unspecified, not intractable, without status epilepticus; I10 Essential (primary) hypertension; F20.9 Schizophrenia, unspecified; Z87.891 Personal history of nicotine dependence; Z72.89 Other problems related to lifestyle; Z79.899 Other long term (current) drug therapy; Z98.49 Cataract extraction status, unspecified eye; Z90.49 Acquired absence of other specified parts of digestive tract; Z91.81 History of falling; Z86.2 Personal history of diseases of the blood and blood-forming organs and certain disorders involving the immune mechanism; Z82.49 Family history of ischemic heart disease and other diseases of the circulatory system
CPT/HCPCS: 43246; J0690; J2704; J3010; J7030; A6250

== ENCOUNTER 2019-07-08 23:54 | Emergency (ER) | payer MEDICARE ==
--- NOTE | 2019-07-09 00:51 | Emergency Department Report ---
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 I spoke with patient's nurse over the phone, who states that patient is not ambulatory, but is known to crawl out of her bed onto the floor. Patient was found on the floor and the dresser had fallen on top of her. Staff believes patient crawled out of her bed and attempted to pull up by using the dresser which then fell onto her. At that time, nurse reports patient was holding her head as if it was hurting, and rubbing her ankle. Patient currently denies any pain at this time. EMS reports alf staff stated that patient is at her baseline. -: This evening Location: head, lower extremity - Related Data Home Medications Medication Instructions Recorded Confirmed Last Taken Depakote 500 mg PO DAILY 08/09/17 06/19/19 07/19/17 Effexor 37.5 mg PO BID 06/19/19 06/19/19 Unknown Lactobacillus Tablet 1 tab PO BID 06/19/19 06/19/19 Unknown Metoprolol 25 mg PO BID 06/19/19 06/19/19 Unknown Omeprazole 40 mg PO DAILY 06/19/19 06/19/19 Unknown QUEtiapine 25 mg PO BID 06/19/19 06/19/19 Unknown Valproic Acid 250 mg PO DAILY 06/19/19 06/19/19 Unknown Vistaril 25 mg PO BID 06/19/19 06/19/19 Unknown Previous Rx's Medication Instructions Recorded Last Taken Type amLODIPine 10 mg PO DAILY #30 tab 08/10/17 Unknown Rx Allergies Allergy/AdvReac Type Severity Reaction Status Date / Time No Known Allergies Allergy Verified 06/19/19 10:40 ED Review of Systems ROS: Stated complaint: FALL HIT 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 Other details as noted in HPI Comment: Unobtainable due to pts medical conditions (dementia) ED Past Medical Hx - Past Medical History Hx Hypertension: Yes Hx Seizures: Yes Hx Psychiatric Treatment: Yes (, schizophrenia) - Surgical History Hx Appendectomy: (ROSSI) - Social History Smoking Status: Never Smoker - Medications Home Medications: Home Medications Medication Instructions Recorded Confirmed Last Taken Type Depakote 500 mg PO DAILY 08/09/17 06/19/19 07/19/17 History amLODIPine 10 mg PO DAILY #30 tab 08/10/17 06/19/19 Unknown Rx Effexor 37.5 mg PO BID 06/19/19 06/19/19 Unknown History Lactobacillus Tablet 1 tab PO BID 06/19/19 06/19/19 Unknown History Metoprolol 25 mg PO BID 06/19/19 06/19/19 Unknown History Omeprazole 40 mg PO DAILY 06/19/19 06/19/19 Unknown History QUEtiapine 25 mg PO BID 06/19/19 06/19/19 Unknown History Valproic Acid 250 mg PO DAILY 06/19/19 06/19/19 Unknown History Vistaril 25 mg PO BID 06/19/19 06/19/19 Unknown History ED Physical Exam - General Limitations: No Limitations General appearance: alert, in no apparent distress - Head Head exam: Present: atraumatic, normocephalic - Eye Eye exam: Present: normal appearance, EOMI - ENT ENT exam: Present: mucous membranes moist - Neck Neck exam: Present: normal inspection - Respiratory Respiratory exam: Present: normal lung sounds bilaterally. Absent: respiratory distress - Cardiovascular Cardiovascular Exam: Present: regular rate, normal rhythm - GI/Abdominal GI/Abdominal exam: Present: soft, other (PEG in place). Absent: distended, tenderness - Extremities Exam Extremities exam: Present: normal inspection. Absent: tenderness - Neurological Exam Neurological exam: Present: alert, other (baseline right sided weakness present) - Psychiatric Psychiatric exam: Present: normal affect, normal mood - Skin Skin exam: Present: warm, dry, intact, normal color. Absent: rash ED Course Vital Signs 07/09/19 07/09/19 01:29 01:52 Temperature 97.3 F L Pulse Rate 66 Respiratory 19 16 Rate Blood Pressure 188/93 O2 Sat by Pulse 100 Oximetry ED Medical Decision Making - Radiology Data Radiology results: report reviewed, image reviewed - Differential Diagnosis Intracranial injury, fracture, sprain Critical care attestation.: If time is entered above; I have spent that time in minutes in the direct care of this critically ill patient, excluding procedure time. ED Disposition Clinical Impression: Fall, Closed head injury, Ankle sprain Disposition: - TO HOME OR SELFCARE Is pt being admited?: No Condition: Stable Instructions: Fall Prevention for Older Adults (ED), Minor Head Injury (ED) Referrals: PRIMARY CARE, [Primary Care Provider] - 3-5 Days Time of Disposition: 03:07
--- NOTE | 2019-07-09 01:14 | Cat Scan Report ---
CT head/brain wo con INDICATION / CLINICAL INFORMATION: MAIN: AMS.. TECHNIQUE: Axial CT imaging of the brain was obtained without contrast. Coronal and sagittal reformatted imaging obtained and reviewed. All CT scans at this location are performed using CT dose reduction for ALAR A by means of automated exposure control. COMPARISON: 09/18/2017 FINDINGS: No intracranial hemorrhage, mass, or midline shift is noted. No extra-axial fluid collection or acute territorial infarction is noted. Ventricular system and basilar cisterns are unremarkable. Large intracerebral hematoma seen in the left basal ganglia on the prior head CT, 09/18/2017 has resol [place]. Small area of encephalomalacia is now present in the left basal ganglia. There are a few lacunar infarcts in the right basal ganglia. There is moderate microvascular angiopathic change noted. Moder ate cerebral and cerebellar atrophy noted. Visualized paranasal sinuses and mastoid air cells are well aerated and clear. IMPRESSION: 1. No acute intracranial abnormality. 2. Moderate microvascular angiopathic change. Signer Name: Karlene Cai MD Signed: 07/09/2019 1:10 AM Workstation Name: [id number]
--- NOTE | 2019-07-09 01:57 | XRay Report ---
BILATERAL ANKLE, 4 VIEWS INDICATION / CLINICAL INFORMATION: injury. COMPARISON: None available. FINDINGS: Left ankle: AP and lateral views of the left ankle do not reveal acute fracture or dislocation. There is diffuse demineralization. There is moderate degenerative change. There is mild diffuse soft tissu e swelling. Prominent calcaneal spurring noted. Right ankle 2 views: Mild to moderate degenerative changes noted. There is diffuse demineralization. No convincing evidence for fracture or dislocation. Calcaneal spurring noted. IMPRESSION: Limited views of both ankles but no suggestion for fracture or dislocation. Signer Name: Karlene Cai MD Signed: 07/09/2019 1:52 AM Workstation Name: [id number]
[2019-07-09 07:53] VITALS: BP 167/89
== END 2019-07-09 07:53 | disposition home or self-care (01) ==
LOC: ED 23:54
DX: S93.409A Sprain of unspecified ligament of unspecified ankle, initial encounter (principal); S09.90XA Unspecified injury of head, initial encounter; F20.9 Schizophrenia, unspecified; Z86.69 Personal history of other diseases of the nervous system and sense organs; Z79.899 Other long term (current) drug therapy; Z90.49 Acquired absence of other specified parts of digestive tract; W06.XXXA Fall from bed, initial encounter; Y93.89 Activity, other specified; Y92.89 Other specified places as the place of occurrence of the external cause; Y99.8 Other external cause status
CPT/HCPCS: 70450